=== PATIENT | female | born 1995 | race African-American/Black ===

== ENCOUNTER 2021-09-29 09:33 | Emergency (ER) | payer OTHER, SELFPAY ==
[2021-09-29 09:46] VITALS: BP 131/79; PULSE 62; RESP 14; TEMP 37.1; O2SAT 100
--- NOTE | 2021-09-29 10:13 | ED.GENADULT ---
HPI - General Adult General Chief complaint: Upper Respiratory Infection Stated complaint: sinus infection Source: patient Mode of arrival: ambulatory Limitations: no limitations History of Present Illness HPI narrative: Patient presents for evaluation of sick symptoms for the last 3 days. Symptoms include sore throat, nonproductive cough, headache, sinus congestion and some SOB that she attributes to wearing a mask. She had diarrhea on the day of symptom onset. None since that time. No fever, chills, nausea, vomiting. No recent sick contacts to her knowledge. She had COVID one year ago. She is taking nyquil which seems to assist in allowing her to get some rest. She does not smoke. No additional complaints or concerns. Related Data Allergies Allergy/AdvReac Type Severity Reaction Status Date / Time No Known Allergies Allergy Verified 09/29/21 10:04 Review of Systems Review of Systems: CONSTITUTIONAL: Denies fever, chills, or sweats. EYES: Denies visual changes, redness, or discharge. ENT: Reports sinus congestion and sore throat. Denies otalgia and nasal drainage CARDIOVASCULAR: Denies chest pain, palpitations, or edema. RESPIRATORY: Reports cough and mild shortness of breath GASTROINTESTINAL: Reports recent diarrhea, none currently. Denies abdominal pain, nausea, vomiting GENITOURINARY: Denies dysuria or hematuria. SKIN: Denies rash or itching. MUSCULOSKELETAL: Denies back pain, joint pain NEUROLOGIC: Denies headache, numbness, dizziness, or weakness. PSYCHIATRIC: Denies anxiety or depression. [facility] Past Medical History Medical History (Updated 09/29/21 @ 10:44 by Josue Rivers, IRISH, ) No pertinent past medical history Viral URI Surgical History Surgical History No pertinent past surgical history Family History Family History Mother Family history non-contributory Social History Social History Smoking status: Never smoker Substance use: never Additional living arrangements comments: Lives with boyfriend Gender identity (if verbalized by the patient): Female Sexual Orientation (if Verbalized by the Patient): Straight or Heterosexual Spiritual care concerns: No Exam Narrative: GENERAL: Well-appearing, well-nourished, and in no acute distress. HEAD: Normocephalic, atraumatic. EYES: PERRLA and EOMI. ENT: Nares clear, no rhinorrhea or epistaxis. Mucous membranes moist. Oropharynx without tonsillar hypertrophy exudate or other lesions. Bilateral TMs pearly jeffers nonbulging NECK: Supple. No adenopathy or masses. No carotid bruits or JVD CHEST: Clear to auscultation. No respiratory distress. No wheezes rales or rhonchi HEART: Regular rate and rhythm. No murmur heard. Normal peripheral pulses. ABDOMEN: Soft, nontender, nondistended, normal active bowel sounds. EXTREMITIES: Normal range of motion. No edema. SKIN: Warm, dry, no rash. NEURO: No focal deficits. Alert and oriented x3. PSYCH: Normal mood and affect. Course Course Emergency Course: This is a 25-year-old female who present with complaints of sick symptoms. COVID, influenza, strep are all negative. Exam is consistent with viral URI. Advised on supportive measures. D/C with sudafed, cepacol and tessalon. Follow up outpatient for further evaluation and treatement and go to ER for decline in condition. Pt in agreement with plan of care. Level of Care: Express Care Visit Vital Signs Vital signs: Vital Signs Temperature 37.1 C 09/29/21 09:46 Pulse Rate 62 09/29/21 09:46 Respiratory Rate 14 09/29/21 09:46 Blood Pressure 131/79 09/29/21 09:46 Pulse Oximetry 100 09/29/21 09:46 Oxygen Delivery Room Air 09/29/21 09:46 Temperature 37.1 C 09/29/21 09:46 Pulse Rate 62 09/29/21 09:46 Respiratory Rate 14 09/29/21 09:4
== END 2021-09-29 11:18 | disposition home or self-care (01) ==
PROVIDERS: Emergency Provider Nurse Practitioner
DX: J06.9 Acute upper respiratory infection, unspecified (principal); Z20.822 Contact with and (suspected) exposure to COVID-19; Z86.16 Personal history of COVID-19
CPT/HCPCS: 87081; 87426; 87804; 87880; 99213; C9803; G0463